=== PATIENT | male | born 1955 ===

== ENCOUNTER 2017-09-12 23:38 | Emergency (ER) | payer OTHER, SELFPAY ==
[2017-09-13 00:01] VITALS: TEMP 98.7
[2017-09-13] MEDS ORDERED: Famotidine 20mg/50ml Premix IVPB STA (00:05)
[2017-09-13] MEDS ORDERED: Famotidine 20mg/50ml 20 MG/50 ML BAG IVPB ONE (00:15)
--- NOTE | 2017-09-13 00:44 | ED PDOC ---
HPI: Abdomen Time Seen by Provider: 09/13/17 00:04 Chief Complaint (Nursing): Abdominal Pain Chief Complaint (Provider): abdominal pain History Per: Patient History/Exam Limitations: no limitations Onset/Duration Of Symptoms: Hrs (x4) Current Symptoms Are (Timing): Still Present Location Of Pain/Discomfort: RUQ, Epigastric Quality Of Discomfort: "Pain" Associated Symptoms: Nausea. denies: Fever, Chills, Diarrhea Additional Complaint(s): Kit Cotton is a 62 year old male, with a past medical history of gallstones and dyslipidemia, who presents to the emergency department complaining of abdominal pain onset for x4 hrs. Patient states he ate steak and subsequently had RUQ and epigastric pain associated with nausea. He reports pain radiates to chest. Patient also reports self-inducing vomiting but with no relief. He denies any fever, chills, cough, shortness of breath, or diarrhea. No further medical complaints. PMD: [facility] Past Medical History Reviewed: Historical Data, Nursing Documentation, Vital Signs Vital Signs: Last Vital Signs Temp 98.7 F 09/12/17 23:55 Pulse 52 L 09/12/17 23:55 Resp 16 09/12/17 23:55 BP 184/103 H 09/12/17 23:55 Pulse Ox 100 09/13/17 04:06 - Medical History PMH: Hypercholesterolemia Other PMH: cholelithiasis - Surgical History Surgical History: No Surg Hx - Family History Family History: States: Unknown Family Hx - Social History Current smoker - smoking cessation education provided: No Alcohol: None Drugs: Denies - Home Medications Home Medications: Ambulatory Orders Medication Instructions Recorded Famotidine [Pepcid] 20 mg PO Q12 #14 tab 09/13/17 traMADol [Ultram] 50 mg PO TID PRN #8 tab 09/13/17 - Allergies Allergies/Adverse Reactions: Allergies Allergy/AdvReac Type Severity Reaction Status Date / Time No Known Allergies Allergy Verified 09/12/17 23:55 Review of Systems ROS Statement: Except As Marked, All Systems Reviewed And Found Negative Constitutional: Negative for: Fever, Chills Respiratory: Negative for: Cough, Shortness of Breath Gastrointestinal: Positive for: Nausea, Abdominal Pain (RUQ, epigastric that radiates to chest). Negative for: Diarrhea Physical Exam - Reviewed Nursing Documentation Reviewed: Yes Vital Signs Reviewed: Yes - Physical Exam Appears: Positive for: Non-toxic, Uncomfortable Head Exam: Positive for: ATRAUMATIC, NORMOCEPHALIC Skin: Positive for: Normal Color, Warm, Dry Eye Exam: Positive for: Normal appearance, EOMI, PERRL Neck: Positive for: Painless ROM, Supple Cardiovascular/Chest: Positive for: Regular Rate, Rhythm. Negative for: Murmur Respiratory: Positive for: Normal Breath Sounds. Negative for: Respiratory Distress Gastrointestinal/Abdominal: Positive for: Tenderness (RUQ and epigastric tenderness), Other (positive Sanchez's sign) Back: Negative for: L CVA Tenderness, R CVA Tenderness, Vertebral Tenderness Extremity: Positive for: Normal ROM (upper and lower extremities). Negative for : Deformity, Swelling Neurologic/Psych: Positive for: Alert, Oriented. Negative for: Motor/Sensory Deficits - Laboratory Results Result Diagrams: 09/13/17 00:25 09/13/17 00:25 - ECG O2 Sat by Pulse Oximetry: 100 (RA) Pulse Ox Interpretation: Normal Medical Decision Making Medical Decision Making: Time: 00:04 Initial Impression: 62 y/o male with RUQ pain in setting of known gallstones Initial Plan: --EKG --CMP --Lipase --CBC w/ differential --Pepcid 20mg/50ml Premix 20 mg IVPB --Toradol 30 mg IV --Urinalysis --Abdomen Limited [US] --Reevaluation 03:49 Abdomen US FINDINGS: Liver: Mildly enlarged and echogenic No masses. Gallbladder: Sludge and gallstones noted. There is not gallbladder wall thickening. No pericholecystic fluid or sonographic Sanchez's sign Common bile duct: Normal. No stones. No dilation. Pancreas: Visualized pancreas is unremarkable. Right kidney: Simple cysts measuring up to 2.8 cm in the lower pole No mass. No hydronephrosis. The visualized abdominal aorta and IVC are unremarkable IMPRESSION: Gallstones and sludge 04:00 -Patient reports improvement of symptoms. Upon provider reevaluation patient is feeling better, is medically stable, and requires no further treatment in the ED at this time. Patient will be discharged home with Rx for Pepcid and Ultram. Counseling was provided and all questions were answered regarding diagnosis of cholelithiasis and [facility]. There is agreement to discharge plan. Return if symptoms persist or worsen. ----- Scribe Attestation: Documented by Cristhian Vela, acting as a scribe for Jorje Zuniga MD. Provider Scribe Attestation: All medical record entries made by the Scribe were at my direction and personally dictated by me. I have reviewed the chart and agree that the record accurately reflects my personal performance of the history, physical exam, medical decision making, and the department course for this patient. I have also personally directed, reviewed, and agree with the discharge instructions and disposition. Disposition - Clinical Impression Clinical Impression: Cholelithiasis - Disposition Referrals: [facility] [Outside] Disposition: Routine/Home Disposition Time: 04:00 Condition: STABLE Prescriptions: Famotidine [Pepcid] 20 mg PO Q12 #14 tab traMADol [Ultram] 50 mg PO TID PRN #8 tab PRN Reason: abdominal pain Instructions: Gallstones Forms: [employer] ([place]) Print Language: UKRAINIAN
[2017-09-13 00:45] LABS: BASO # 0.2 K/uL (0.0-0.2); BASO % 1.2 % (0.0-2.0); EOS # 0.2 K/uL (0.0-0.7); EOS % 1.2 % (0.0-4.0); HEMOGLOBIN 16.8 g/dL (12.0-18.0); LYMPH % 15.4 % (20.0-40.0); MEAN CELL VOLUME 86.1 fl (80.0-94.0); MEAN CORPUSCULAR HEMOGLOBIN 29.2 pg (27.0-31.0); MEAN CORPUSCULAR HGB CONC 33.9 g/dL (33.0-37.0); MEAN PLATELET VOLUME 9.2 fl (7.2-11.7); MONO # 0.7 K/uL (0.0-0.8); MONO % 5.7 % (0.0-10.0); NEUT # 9.9 K/uL (1.8-7.0); NEUT % 76.5 % (50.0-75.0); RBC 5.75 Mil/uL (4.40-5.90); RED CELL DISTRIBUTION WIDTH 13.6 % (11.5-14.5); WHITE BLOOD COUNT 12.9 K/uL (4.8-10.8)
[2017-09-13 00:47] LABS: URINE BILIRUBIN NEGATIVE (NEGATIVE); URINE BLOOD MODERATE (NEGATIVE); URINE CLARITY CLEAR (Clear); URINE COLOR YELLOW (YELLOW); URINE GLUCOSE (UA) NEG (Normal); URINE LEUKOCYTE ESTERASE NEG Leu/uL (Negative); URINE PROTEIN 100 mg/dL (NEGATIVE); URINE UROBILINOGEN 0.2-1.0 mg/dL (0.2-1.0)
[2017-09-13 00:50] LABS: ALB/GLOB RATIO 1.2 (1.0-2.1); ALBUMIN 4.4 g/dL (3.5-5.0); ALT/SGPT 42 U/L (21-72); AST/SGOT 25 U/L (17-59); BLOOD UREA NITROGEN 21 mg/dl (9-20); CALCIUM 9.9 mg/dL (8.4-10.2); GFR AFRICAN-AMERICAN > 60; GFR NON-AFRICAN AMERICAN > 60; LIPASE 98 U/L (23-300)
[2017-09-13] MEDS ORDERED: Alum-Mag Hydrox-Simethicone Susp (30 mL) PO STA (04:05)
[2017-09-13] MEDS ORDERED: Alum-Mag Hydrox-Simethicone Susp (30 mL) ONE (04:10)
[2017-09-13 04:17] VITALS: BP 154/95; PULSE 62; RESP 17; O2SAT 99
--- NOTE | 2017-09-13 10:29 | US ---
HISTORY: RUQ COMPARISON: None. TECHNIQUE: Sonographic evaluation of the right upper quadrant of the abdomen. FINDINGS: LIVER: Measures 17.4 cm in length. Diffusely increased echogenicity of the liver parenchyma. Consistent with fatty infiltration. Smooth contour. No mass. No intrahepatic biliary ductal dilatation. GALLBLADDER: Cholelithiasis. No mural thickening. No pericholecystic fluid. Negative sonographic Sanchez sign. COMMON BILE DUCT: Measures 5 mm. No stones. No dilatation. PANCREAS: Unremarkable as visualized. No mass. No ductal dilatation. RIGHT KIDNEY: Measures 11.2 cm in length. Normal echogenicity. No calculus or hydronephrosis. Lower pole cortical cyst, 2.1 x 2.7 x 2.8 cm. Exophytic lower pole cortical cyst, 7 x 7 x 9 mm. No solid mass. AORTA: No aneurysmal dilatation. IVC: Unremarkable. OTHER FINDINGS: None . IMPRESSION: Cholelithiasis without evidence of cholecystitis. Fatty infiltration of the liver. Two simple right renal cortical cysts. No biliary obstruction. Preliminary interpretation of this examination was reported by [facility] at 3:49 a.m. on 09/13/2017. There is concurrence of this report with the preliminary interpretation.
--- NOTE | 2017-09-13 16:50 | CARD ---
APPROVED REPORT EKG Measurement Heart [id number] <Conclusion> Sinus bradycardia Left axis deviation Early repolarization pattern Abnormal ECG
== END 2017-09-13 04:28 | disposition home or self-care (01) ==
LOC: H.ER 23:38
DX: K80.20 Calculus of gallbladder without cholecystitis without obstruction (principal); K76.0 Fatty (change of) liver, not elsewhere classified; E78.00 Pure hypercholesterolemia, unspecified
CPT/HCPCS: 76705; 80053; 81003; 83690; 85025; 93005; 96365; 96375; 99283; J1885; J2270